=== PATIENT | female | born 2000 | race Caucasian/White ===

== ENCOUNTER 2022-09-16 11:48 | Emergency (ER) | payer OTHER, SELFPAY ==
[2022-09-16 12:02] VITALS: BP 126/94; PULSE 82; RESP 16; TEMP 37.7; O2SAT 100
--- NOTE | 2022-09-16 12:42 | ED.URI ---
HPI - URI/Sore Throat General Chief Complaint: Upper Respiratory Infection Stated Complaint: FEVER/CONGESTION/BODY ACHES Time Seen by Provider: 09/16/22 12:38 Source: patient Mode of arrival: ambulatory Limitations: no limitations History of Present Illness HPI Narrative: Patient presents today complaining of fever up to 100.6, congestion, postnasal drip, body aches, cough. Symptoms began last night and worsened this morning. Denies shortness of breath. She has tried no [id number] treatment prior to arrival. Denies any history of asthma. She is an occasional smoker. She has not received a flu vaccine. Related Data Home Medications Medication Instructions Recorded Confirmed insulin lispro 100 unit/mL 1 unit subcut DIRECTED 09/16/22 09/16/22 subcutaneous solution (Humalog U-100 Insulin) Allergies Allergy/AdvReac Type Severity Reaction Status Date / Time No Known Allergies Allergy Verified 09/16/22 12:23 Review of Systems Review of Systems: CONSTITUTIONAL: Denies chills, or sweats.+ fever, body aches EYES: Denies visual changes, redness, or discharge. ENT: Denies rhinorrhea, sore throat, or otalgia.+ congestion, postnasal drip CARDIOVASCULAR: Denies chest pain, palpitations, or edema. RESPIRATORY: Denies dyspnea.+ cough GASTROINTESTINAL: Denies abdominal pain, nausea, vomiting, or diarrhea. GENITOURINARY: Denies dysuria or hematuria. SKIN: Denies rash, itching, or wounds. MUSCULOSKELETAL: Denies back pain, joint pain, or myalgia. NEUROLOGIC: Denies headache, numbness, tingling, or weakness. PSYCH: Denies depression or anxiety. 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 Please see nursing chart for further information. There is no relevant family history pertinent to the presenting complaint Exam Narrative: GENERAL: Well-appearing, well-nourished, and in no acute distress. HEAD: Normocephalic, atraumatic. EYES: EOMI. No redness or drainage. Conjunctivae normal. ENT: Mucous membranes pink and moist. Nares clear. No rhinorrhea. TMs normal bilaterally. Throat mildly erythematous without edema or exudate. Uvula midline. NECK: Normal AROM. Supple. No lymphadenopathy. CHEST: No respiratory distress. Clear to auscultation. HEART: Regular rate and rhythm. No murmur appreciated. Normal peripheral pulses. EXTREMITIES: Normal range of motion. No edema. SKIN: Warm, dry, no rash. Capillary refill normal. Normal skin turgor. NEURO: No focal deficits. Alert and oriented x3. Gait steady. PSYCH: Normal affect. No signs of depression or anxiety. Course Course Level of Care: Express Care Visit Vital Signs Vital signs: Vital Signs Temperature 99.8 F H 09/16/22 12:02 Pulse Rate 82 09/16/22 12:02 Respiratory Rate 16 09/16/22 12:02 Blood Pressure 126/94 H 09/16/22 12:02 Pulse Oximetry 100 09/16/22 12:02 Oxygen Delivery Room Air 09/16/22 12:02 Temperature 99.8 F H 09/16/22 12:02 Pulse Rate 82 09/16/22 12:02 Respiratory Rate 16 09/16/22 12:02 Blood Pressure 126/94 H 09/16/22 12:02 Pulse Oximetry 100 09/16/22 12:02 Oxygen Delivery Room Air 09/16/22 12:02 Reviewed. Pt has been instructed to follow up with her PCP regarding her elevated blood pressur
== END 2022-09-16 13:06 | disposition home or self-care (01) ==
PROVIDERS: Emergency Provider Nurse Practitioner
DX: B34.9 Viral infection, unspecified (principal); F17.290 Nicotine dependence, other tobacco product, uncomplicated; E10.9 Type 1 diabetes mellitus without complications; Z20.822 Contact with and (suspected) exposure to COVID-19
CPT/HCPCS: 87081; 87426; 87804; 87880; 99213; C9803; G0463

== ENCOUNTER 2022-12-06 14:54 | Emergency (ER) | payer OTHER, SELFPAY ==
--- NOTE | 2022-12-06 15:02 | ED.URI ---
HPI - URI/Sore Throat General Chief Complaint: Upper Respiratory Infection Stated Complaint: pos strep Time Seen by Provider: 12/06/22 15:03 Source: patient and RN notes reviewed History of Present Illness HPI Narrative: Patient is a 22-year-old female who presents to urgent care with complaints of a sore throat that started yesterday. Patient states she also had a headache yesterday. 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 Patient denies any fevers, nausea, vomiting. Patient states that she has never tested positive for strep but has had all the symptoms. Patient is a juvenile diabetic. Denies any known fluctuations in blood sugars. No other acute complaints. No acute distress noted. Patient aware of the plan of care. Some parts of this dictation were generated by voice recognition software and may contain typographical and/or grammatical inaccuracies. Related Data Home Medications Medication Instructions Recorded Confirmed insulin lispro 100 unit/mL 1 unit subcut DIRECTED 09/16/22 12/06/22 subcutaneous solution (Humalog U-100 Insulin) Allergies Allergy/AdvReac Type Severity Reaction Status Date / Time No Known Allergies Allergy Verified 12/06/22 15:09 Review of Systems Review of Systems: CONSTITUTIONAL: Denies fever, chills, or sweats. EYES: Denies visual changes, redness, or discharge. ENT: Denies rhinorrhea, congestion, otalgia. Reports of sore throat CARDIOVASCULAR: Denies chest pain, palpitations, or edema. RESPIRATORY: Denies cough or dyspnea. GASTROINTESTINAL: Denies abdominal pain, nausea, vomiting, or diarrhea. GENITOURINARY: Denies dysuria or hematuria. SKIN: Denies rash or itching. MUSCULOSKELETAL: Denies back pain, joint pain, or myalgia. NEUROLOGIC: Reports of headache All other systems reviewed are negative, except as documented in HPI. 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 There is no relevant family history pertinent to the patient complaint. Exam Narrative: GENERAL: This is a well-nourished, well-developed patient, in no apparent distress. HEAD: normocephalic, atraumatic. EYES: PERRL. Sclera clear/white. Vision is grossly intact. EARS: External ears normal, auditory canals clear and without drainage, TMs normal without perforation. Hearing grossly intact. NOSE: External nose normal with no obvious nasal discharge, nares without redness, no rhinorrhea. THROAT: Mucous membranes moist, posterior pharynx clear. Mild right tonsillar edema without exudate or ulceration. NECK: Neck supple, non-tender bilateral submandibular lymphadenopathy CARDIOVASCULAR: Regular rate and rhythm without murmurs, gallops, or rubs. RESPIRATORY: Clear to auscultation. Breath sounds equal bilaterally. No wheezes, rales, or rhonchi. SKIN: warm, intact with no suspicious lesions or rash, good texture and turgor. NEURO: awake, alert, and oriented to person, place and time. There were no obvious focal neurologic abnormalities. EXTREMITIES: No clubbing, cyanosis, or edema. Course Course Level of Care: Express Care Visit Vital Signs Vital signs: Vital Signs Temperature 99.5 F 12/06/22 15:12 Pulse
[2022-12-06 15:12] VITALS: BP 148/99; PULSE 99; RESP 16; TEMP 37.5; O2SAT 100
== END 2022-12-06 15:32 | disposition home or self-care (01) ==
PROVIDERS: Emergency Provider Nurse Practitioner Family
DX: J02.9 Acute pharyngitis, unspecified (principal); E10.9 Type 1 diabetes mellitus without complications
CPT/HCPCS: 87081; 87880; 99213; G0463